=== PATIENT | female | born 1965 | race Caucasian/White ===

== ENCOUNTER → 2016-12-09 | Outpatient (CLI) | payer BC ==
[~2016-12-09] MED LIST: IBUP-103 PO; IBUP200C9
--- NOTE | 2016-12-10 13:41 | MAMMOGRAPHY REPORT ---
BILATERAL DIGITAL SCREENING MAMMOGRAM TOMOSYNTHESIS WITH CAD: 12/09/2016 CLINICAL HISTORY: Routine screening. TECHNIQUE: Breast tomosynthesis in addition to standard 2D mammography was performed. Current study was also evaluated with a Computer Aided Detection (CAD) system. COMPARISON: Comparison is made to exams dated: 12/07/2015 mammogram, 12/04/2014 mammogram, 01/17/2014 ultrasound, 01/17/2014 mammogram, 12/30/2013 mammogram, and 12/29/2012 mammogram - [facility]. BREAST COMPOSITION: There are scattered areas of fibroglandular density in both breasts. Mild invol utional changes compared to prior mammograms. FINDINGS: A dominant circumscribed 9 mm mass in the upper outer posterior left breast has decreased i n size compared to prior mammograms, confirming benignity. There are other stable circumscribed mass es in the left breast. No suspicious spiculated or irregular mass, architectural distortion or clust er of suspicious microcalcifications is seen. IMPRESSION: ACR BI-RADS CATEGORY 1: NEGATIVE There is no mammographic evidence of malignancy. A 1 year screening mammogram is recommended. The pa tient will receive written notification of the results. Approximately 10% of breast cancers are not detected with mammography. A negative mammographic report should not delay biopsy if a clinically suggestive mass is present. Ermelinda Dimas M.D. ay/:12/09/2016 16:04:04 Softball Winder: Emma REARDON)([place]), [facility] letter sent: Normal 1/2 BI-RADS Code: ACR BI-RADS Category 1: Negative
== END | disposition home or self-care (01) ==
LOC: C.MAMM 13:48
PROVIDERS: ATTEND Obstetrics & Gynecology
DX: Z12.31 Encounter for screening mammogram for malignant neoplasm of breast (principal)